=== PATIENT | female | born 1970 | race Caucasian/White ===

== ENCOUNTER 2021-12-15 14:53 | Emergency (ER) | payer OTHER, SELFPAY ==
--- NOTE | ~2021-12-15 | XR_ITS ---
EXAM: XR foot RT min 3V DATE: 12/15/2021 15:29 HISTORY: HIT ON BEDPOST 12/14/21. ANT/LAT PAIN SINCE. . COMPARISON: None available. FINDINGS: Normal mineralization. No fracture or dislocation. No lytic or blastic lesion. Joint space s are maintained. Plantar enthesopathy. No erosion or periosteal change. Soft tissues within normal l imits. IMPRESSION: No acute osseous finding in the right foot. Reviewed, dictated and finalized at location K.
--- NOTE | 2021-12-15 14:56 | ED.LOWEXIN ---
HPI - Extremity Injury (Lower) General Chief Complaint: Extremity Injury, Lower Stated Complaint: Right Foot Injury Time Seen by Provider: 12/15/21 14:56 Source: patient and RN notes reviewed History of Present Illness HPI Narrative: Patient is a 51-year-old female who presents the urgent care with complaints of right foot pain and swelling. Patient states that last night she excellently kicked her bed frame while walking to bed. Patient did not have a shoe on. Patient states she is an avid walker and has been having extreme pain with ambulation and weightbearing. Patient denies any [id number] medication for her pain. No other acute complaints. No acute distress noted. Patient aware of the plan of care. Some parts of this dictation were generated by voice recognition software and may contain typographical and/or grammatical inaccuracies. Related Data Home Medications Medication Instructions Recorded Confirmed atenolol 50 mg tablet 50 mg PO DAILY 12/15/21 12/15/21 omeprazole 40 mg capsule,delayed 40 mg PO DAILY 12/15/21 12/15/21 release Allergies Allergy/AdvReac Type Severity Reaction Status Date / Time No Known Allergies Allergy Verified 12/15/21 15:07 Review of Systems Review of Systems: CONSTITUTIONAL: Denies fever, chills, or sweats. EYES: Denies visual changes, redness, or discharge. ENT: Denies rhinorrhea, congestion, sore throat, or otalgia. CARDIOVASCULAR: Denies chest pain, palpitations, or edema. RESPIRATORY: Denies cough or dyspnea. GASTROINTESTINAL: Denies abdominal pain, nausea, vomiting, or diarrhea. GENITOURINARY: Denies dysuria or hematuria. SKIN: Denies rash or itching. MUSCULOSKELETAL: Right foot pain NEUROLOGIC: Denies headache, numbness, or weakness. All other systems reviewed are negative, except as documented in HPI. PMFSH Comments At the time of my signature, I reviewed and agree with the nursing past medical, surgical, social, and family history. There is no relevant family history pertinent to the patient complaint. Exam Narrative: GENERAL: This is a well-nourished, well-developed patient, in no apparent distress. HEAD: normocephalic, atraumatic. EYES: PERRL. Sclera clear/white. Vision is grossly intact. EARS: External ears normal NOSE: External nose normal with no obvious nasal discharge, nares without redness, no rhinorrhea. THROAT: Mucous membranes moist, posterior pharynx clear. NECK: Neck supple CARDIOVASCULAR: Regular rate and rhythm without murmurs, gallops, or rubs. RESPIRATORY: Clear to auscultation. Breath sounds equal bilaterally. No wheezes, rales, or rhonchi. SKIN: warm, intact with no suspicious lesions or rash, good texture and turgor. NEURO: awake, alert, and oriented to person, place and time. There were no obvious focal neurologic abnormalities. EXTREMITIES: Mild to moderate ecchymosis and edema to the dorsal distal aspect of the right foot with moderate tenderness. Positive strong right pedal pulse with capillary refill less than 2 seconds. Pain exacerbated with weightbearing Course Course Level of Care: Express Care Visit Vital Signs Vital signs: Vital Signs Temperature 98.2 F 12/15/21 14:58 Pulse Rate 72 12/15/21 14:58 Respiratory Rate 14 12/15/21 14:58 Blood Pressure 129/68 12/15/21 14:58 Pulse Oximetry 98 12/15/21 14:58 Oxygen Delivery Room Air 12/15/21 14:58 Temperature 98.2 F 12/15/21 15:08 Pulse Rate 72 12/15/21 15:08 Respiratory Rate 14 12/15/21 15:08 Blood Pressure 129/68 12/15/21 15:08 Pulse Oximetry 98 12/15/21 15:08 Oxygen Delivery Room Air 12/15/21 15:08 Reviewed MDM - Extremity Injury (Lower) MDM Narrative Medical decision making narrative: Reviewed x-ray results with the patient. She is aware that x-ray was negative for any fracture or deformity. Advised patient to wear an Geovanny wrap as needed for comfort and support. Wear supportive shoe and I would avoid walking long distance or
[2021-12-15 14:58] VITALS: BP 129/68; PULSE 72; RESP 14; TEMP 36.8; O2SAT 98
[2021-12-15 15:08] VITALS: BP 129/68; PULSE 72; RESP 14; TEMP 36.8; O2SAT 98
== END 2021-12-15 16:09 | disposition home or self-care (01) ==
PROVIDERS: Emergency Provider Nurse Practitioner Family; PCP Internal Medicine
DX: S90.31XA Contusion of right foot, initial encounter (principal); W22.03XA Walked into furniture, initial encounter; I48.91 Unspecified atrial fibrillation; I10 Essential (primary) hypertension; K21.9 Gastro-esophageal reflux disease without esophagitis
CPT/HCPCS: 73630; 99213; G0463